=== PATIENT | female | born 1995 | race Caucasian/White ===

== ENCOUNTER 2024-01-08 13:52 | Emergency (ER) | payer MEDICAID ==
[~2024-01-08] VITALS: Ht 172.7 cm; Wt 127.0 kg
[2024-01-08 14:23] VITALS: O2SAT 96
[2024-01-08] MEDS ORDERED: DEXAMETHASONE 10 MG/ML VIAL PO ONE (14:45)
[2024-01-08] MEDS ORDERED: IBUPROFEN 600MG TABLET PO ONE (14:45)
[2024-01-08] MEDS ORDERED: ACETAMINOPHEN 325MG TABLET PO ONE (15:00)
[2024-01-08] MEDS: DEXAMETHASONE 10 MG/ML VIAL PO NR (17:11)
[2024-01-08] MEDS: IBUPROFEN 600MG TABLET PO NR (17:12)
[2024-01-08] MEDS: ACETAMINOPHEN 325MG TABLET PO NR (17:12)
[2024-01-08] MEDS ORDERED: IBUP-2029 MT (17:46)
[2024-01-08] MEDS ORDERED: BENZ1LOZ73 MT (17:46)
[2024-01-08] MEDS ORDERED: AZIT250T12 MT (19:22)
[2024-01-08 19:37] VITALS: BP 153/82; PULSE 86; RESP 18; TEMP 98.1
[2024-01-12 04:13] LABS: CHLAMYDIA TRACHOMATIS NAA Negative (Negative); NEISSERIA GONORRHOEAE NAA Negative (Negative)
== END 2024-01-08 19:38 | disposition home or self-care (01) ==
LOC: ER 13:52
DX: J03.90 Acute tonsillitis, unspecified (principal); Z20.822 Contact with and (suspected) exposure to COVID-19
CPT/HCPCS: 99284; 87426; 87491; 87591; 81025; 87070; 87804 ×2; 87430; J1100